=== PATIENT | female | born 1990 ===

== ENCOUNTER 2016-08-04 14:17 | Emergency (ER) | payer OTHER ==
[2016-08-04 14:42] VITALS: BP 106/66; PULSE 80; RESP 20; TEMP 97; O2SAT 98
[2016-08-04] MEDS ORDERED: Sodium Chloride 0.9% 1,000 ML IV STA (15:29)
--- NOTE | 2016-08-04 16:25 | US ---
PROCEDURE: HISTORY: r/o ectopic COMPARISON: TECHNIQUE: FINDINGS: Uterus measures 8.5 x 6.9 x 4.8 centimeters. There is an intrauterine sac measuring 2.4 cm corresponding to 7 weeks gestational age. There is a pole measuring 1.3 cm corresponding 7 weeks 4 days gestational age. heart motion is identified at 154 beats per minute. There is a yolk sac present. The ovaries are unremarkable. IMPRESSION: As above.
[2016-08-04 16:34] LABS: RBC URINE 3 /hpf (0-3); URINE BACTERIA MANY (<OCC); URINE BILIRUBIN NEGATIVE (NEGATIVE); URINE BLOOD NEGATIVE (NEGATIVE); URINE COLOR YELLOW (YELLOW); URINE GLUCOSE (UA) NEG (Normal); URINE KETONE NEGATIVE (NEGATIVE); URINE LEUKOCYTE ESTERASE SMALL Leu/uL (Negative); URINE PROTEIN 30 mg/dL (NEGATIVE); URINE UROBILINOGEN 0.2-1.0 mg/dL (0.2-1.0); WBC URINE 13 /hpf (0-5)
--- NOTE | 2016-08-04 16:48 | ED PDOC ---
HPI: General Adult Time Seen by Provider: 08/04/16 14:31 Chief Complaint (Nursing): Abdominal Pain Chief Complaint (Provider): abdominal pain History Per: Patient History/Exam Limitations: no limitations Additional Complaint(s): 26yo female G5 comes in with dizziness, weakness, suprapubic abdominal pain. States she's been vomiting. No vaginal bleeding or discharge. 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) - Surgical History Surgical History: No Surg Hx - Family History Family History: States: Unknown Family Hx - Living Arrangements Living Arrangements: With Family - Social History Drugs: Denies - Home Medications Home Medications: Ambulatory Orders Medication Instructions Recorded Ibuprofen [Motrin] 600 mg PO Q8 #30 tab 01/30/15 Oxycodone HCl/Acetaminophen 1 tab PO Q6 PRN #10 tab 01/30/15 [Percocet 325 mg-5 mg] Tramadol HCl [Ultram] 50 mg PO Q8 PRN #20 tab 02/21/15 Ibuprofen [Motrin] 600 mg PO Q6 #20 tab 07/31/15 Nitrofurantoin Macrocrystals 100 mg PO BID 5 Days 08/04/16 [Macrobid] - Allergies Allergies/Adverse Reactions: Allergies Allergy/AdvReac Type Severity Reaction Status Date / Time No Known Allergies Allergy Verified 08/04/16 14:38 Review of Systems ROS Statement: Except As Marked, All Systems Reviewed And Found Negative Constitutional: Positive for: Weakness Gastrointestinal: Positive for: Nausea, Vomiting, Abdominal Pain Neurological: Positive for: Dizziness Physical Exam - Reviewed Nursing Documentation Reviewed: Yes Vital Signs Reviewed: Yes - Physical Exam Appears: Positive for: Well, Non-toxic, No Acute Distress Head Exam: Positive for: ATRAUMATIC, NORMAL INSPECTION, NORMOCEPHALIC Skin: Positive for: Warm, Dry Eye Exam: Positive for: EOMI, PERRL Cardiovascular/Chest: Positive for: Regular Rate, Rhythm Respiratory: Positive for: Normal Breath Sounds. Negative for: Rales, Rhonchi, Wheezing Gastrointestinal/Abdominal: Positive for: Normal Exam, Soft. Negative for: Tenderness Extremity: Positive for: Normal ROM Neurologic/Psych: Positive for: Alert, Oriented - Laboratory Results Result Diagrams: 08/04/16 16:40 08/04/16 16:40 - ECG O2 Sat by Pulse Oximetry: 98 (RA) Pulse Ox Interpretation: Normal Medical Decision Making Medical Decision Makin Impression abdominal pain in , nausea plan: -US OB -Labs -Zofran -IV Fluids -reassess 1730: Pt. feeling better. Tolerating PO. Will d/c home w/ f/u w/ [facility]. FINDINGS: Uterus measures 8.5 x 6.9 x 4.8 centimeters. There is an intrauterine sac measuring 2.4 cm corresponding to 7 weeks gestational age. There is a pole measuring 1.3 cm corresponding 7 weeks 4 days gestational age. heart motion is identified at 154 beats per minute. There is a yolk sac present. The ovaries are unremarkable. IMPRESSION: As above. Disposition - Clinical Impression Clinical Impression: Abdominal pain in , UTI (urinary tract infection) - Disposition [facility] Disposition Time: 17:45 Condition: IMPROVED Prescriptions: Nitrofurantoin Macrocrystals [Macrobid] 100 mg PO BID 5 Days Instructions: Abdominal Pain in (ED), Urinary Tract Infection in (ED) Additional Comments - Additional Comments Additional Comments: Scribe Attestation Documented by Best Desouza, acting as a scribe for Arturo Valladares MD. Provider Scribe Attestation All medical record entries made by the Scribe were at my direction and personally dictated by me. I have reviewed the chart and agree that the record accurately reflects my personal performance of the history, physical exam, medical decision making, and the department course for this patient. I have also personally directed, reviewed, and agree with the discharge instructions and disposition.
[2016-08-04 16:50] LABS: BASO % 0.3 % (0.0-2.0); EOS # 0.1 K/uL (0.0-0.7); HEMATOCRIT 34.7 % (34.0-47.0); LYMPH # 2.4 K/uL (1.0-4.3); LYMPH % 29.4 % (20.0-40.0); MEAN CELL VOLUME 81.3 fl (81.0-99.0); MEAN CORPUSCULAR HEMOGLOBIN 26.5 pg (27.0-31.0); MEAN CORPUSCULAR HGB CONC 32.6 g/dL (33.0-37.0); MEAN PLATELET VOLUME 7.2 fl (7.2-11.7); MONO # 0.8 K/uL (0.0-0.8); NEUT # 4.8 K/uL (1.8-7.0); NEUT % 59.3 % (50.0-75.0); RED CELL DISTRIBUTION WIDTH 15.3 % (11.5-14.5); WHITE BLOOD COUNT 8.1 K/uL (4.8-10.8)
[2016-08-04 17:04] LABS: ALB/GLOB RATIO 1.2 (1.0-2.1); ALKALINE PHOSPHATASE 69 U/L (38-126); ALT/SGPT 24 U/L (9-52); AST/SGOT 22 U/L (14-36); BILIRUBIN,TOTAL 0.6 mg/dl (0.2-1.3); BLOOD UREA NITROGEN 8 mg/dl (7-17); CALCIUM 8.9 mg/dL (8.4-10.2); CARBON DIOXIDE 22 mmol/L (22-30); CHLORIDE 105 mmol/L (98-107); GFR AFRICAN-AMERICAN > 60; GLUCOSE,RANDOM 87 mg/dL (65-105); LIPASE 47 U/L (23-300); POTASSIUM 3.5 MMOL/L (3.6-5.0); SODIUM 140 mmol/l (132-148); TOTAL PROTEIN 7.3 G/DL (6.3-8.2)
== END 2016-08-04 17:58 | disposition home or self-care (01) ==
LOC: H.ER 14:17
DX: O23.40 Unspecified infection of urinary tract in pregnancy, unspecified trimester (principal); R42 Dizziness and giddiness

== ENCOUNTER 2016-09-17 22:31 | Observation (INO) | payer OTHER ==
[2016-09-17 23:24] VITALS: TEMP 99.2; O2SAT 99
[2016-09-17] MEDS ORDERED: Sodium Chloride 0.9% 1,000 ML IV STA (23:52)
[2016-09-17] MEDS ORDERED: Iohexol 240 (50 ml) PO ONE (23:52)
[2016-09-17] MEDS ORDERED: Iohexol 240 (50 ml) ONE (23:53)
--- NOTE | 2016-09-17 23:56 | ED PDOC ---
HPI: Abdomen Time Seen by Provider: 09/17/16 23:40 Chief Complaint (Nursing): Abdominal Pain Chief Complaint (Provider): abdominal pain History Per: Patient History/Exam Limitations: no limitations Onset/Duration Of Symptoms: Hrs (7) Current Symptoms Are (Timing): Still Present Location Of Pain/Discomfort: Diffuse Quality Of Discomfort: "Pain" Associated Symptoms: Fever, Chills, Nausea, Vomiting Additional Complaint(s): 26 y/o female presents for eval of abdominal pain x 7 hours. Associated multiple nonbilious vomiting episodes, fever of 100.3, chills. Patient states she had pizza shortly before symptoms began; unknown if related. Denies cough, congestion, changes in bowel movements, sick contacts. 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) - Surgical History Surgical History: No Surg Hx - Family History Family History: States: Unknown Family Hx - Home Medications Home Medications: Ambulatory Orders Medication Instructions Recorded Naproxen [Naprosyn] 500 mg PO Q12 PRN #14 tablet 09/18/16 Ondansetron [Zofran Odt] 4 mg PO Q8 PRN #10 odt 09/18/16 - Allergies Allergies/Adverse Reactions: Allergies Allergy/AdvReac Type Severity Reaction Status Date / Time No Known Allergies Allergy Verified 09/17/16 23:20 Review of Systems ROS Statement: Except As Marked, All Systems Reviewed And Found Negative Constitutional: Positive for: Fever, Chills Gastrointestinal: Positive for: Nausea, Vomiting, Abdominal Pain Physical Exam - Reviewed Nursing Documentation Reviewed: Yes Vital Signs Reviewed: Yes - Physical Exam Appears: Positive for: Well, Non-toxic, No Acute Distress Head Exam: Positive for: ATRAUMATIC, NORMAL INSPECTION, NORMOCEPHALIC Skin: Positive for: Normal Color Eye Exam: Positive for: Normal appearance ENT: Positive for: Normal ENT Inspection Cardiovascular/Chest: Positive for: Regular Rate, Rhythm Respiratory: Positive for: Normal Breath Sounds Gastrointestinal/Abdominal: Positive for: Bowel Sounds, Soft, Tenderness (rlq, suprapubic, llq) Back: Positive for: Normal Inspection Extremity: Positive for: Normal ROM Neurologic/Psych: Positive for: Alert, Oriented - Laboratory Results Result Diagrams: 09/17/16 00:33 09/17/16 00:33 - ECG O2 Sat by Pulse Oximetry: 99 - Progress ED Course And Treament: labs, urine, IV fluids, IV zofran, IV toradol, CT abd/pelvis ED OBSERVATION Discharge: Yes Date of observation admission: 09/18/16 Time of observation admission: 01:30 - Observation admission statement Patient is being placed in observation because:: abdominal pain, vomiting - Goals of Observation Goals of observation are:: obtain CT abd/pelvis - Progress Note Progress Note: 09/18/16 02:45 EXAM: CT Abdomen and Pelvis With Intravenous Contrast CLINICAL HISTORY: 26 years old, female; Pain; Abdominal pain; Localized; Lower; Additional info: Abd pain, vomiting TECHNIQUE: Axial computed tomography images of the abdomen and pelvis with intravenous contrast. This CT exam was performed using one or more of the following dose reduction techniques : automated exposure control, adjustment of the mA and/or kV according to patient size, and/ or use of iterative reconstruction technique. Coronal and sagittal reformatted images were created and reviewed. CONTRAST: 95 mL of [id number] administered intravenously. EXAM DATE/TIME: Exam ordered 09/17/2016 11:52 PM COMPARISON: No relevant prior studies available. FINDINGS: History--Noted that on August 04, 2016, this patient had a pelvic ultrasound images not available for review, this study described an intrauterine gestational sac which at that time was 7 weeks gestational age and heart motion seen at that time. Ovaries within normal limits at time of that ultrasound as per that report. Lower thorax: Lung bases with mild gravitational phenomenon, no evidence of acute infection. Air in the esophagus in keeping with reflux. Small hiatus hernia. ABDOMEN: Liver: Hepatic steatosis, 19.7cm. Gallbladder and bile ducts: Unremarkable. No calcified stones. No ductal dilation. Pancreas: Unremarkable. No mass. No ductal dilation. Spleen: Unremarkable. No splenomegaly. Adrenals: Unremarkable. No mass. Kidneys and ureters: No ureteral stones are seen noting that punctate stones or noncalcified stones may not be well seen on CT. There is mild right hydronephrosis. Stomach and bowel: Unremarkable. No obstruction. No mucosal thickening. Appendix: No findings to suggest acute appendicitis. PELVIS: Bladder: Unremarkable. No mass. Reproductive: Interval history regarding the is not provided and correlation with beta hCG is strongly recommended. The left ovary contains a 4.3 cm cystic finding, right ovary is unremarkable. ABDOMEN and PELVIS: Intraperitoneal space: There is no free intraperitoneal air. No significant fluid collection. Bones/joints: No fractures. Likely disc bulge L4-5 and L5-S1. No dislocation. Soft tissues: Unremarkable. Vasculature: Unremarkable. No abdominal aortic aneurysm. Lymph nodes: Numerous small mesenteric nodes. IMPRESSION: Left adnexal cystic finding, greater than 4 cm, noting the history that the patient was on August 04, 2016. Correlation with beta hCG and consideration of gynecologic causes of symptoms is recommended. Specific considerations include retained products of conception, endometriosis. Normal appendix. Mild prominence of the right collecting system, no obstructing stone is seen, laboratory correlation. Thank you for allowing us to participate in the care of your patient. Patient states she had D&C procedure on 08/06/16 for a 7 week . SHe states she did not follow up because she did not have pelvic pain or bleeding after procedure. Patient notes getting her menses 2 days ago since procedure. Case discussed with ED attending Dr. Roger; will obtain u/s and add beta level. 09/18/16 05:35 EXAM: US Pelvis Complete, Transabdominal CLINICAL HISTORY: 26 years old, female; Signs and symptoms; Other: Vomiting, dizziness, pain; Prior surgery; Surgery date: 1-6 months; Surgery type: Termination of 08/06; Additional info: Pain, vomiting; L cyst, d c 08/06 TECHNIQUE: Real-time transabdominal pelvic ultrasound (complete) with image documentation. COMPARISON: CT - ABD PELVIS PO IV CON 09/18/2016 1:55:27 AM FINDINGS: Uterus/cervix: Uterus measures 10.4 x 4.1 x 6.3 cm in size. No myometrial mass. Endometrium: 1.1 cm in thickness. Small fluid within canal. Right ovary: 2.4 x 2.3 x 2.2 cm in size. No mass. Normal flow. Left ovary: 4.5 x 4.7 x 4.3 cm in size. 3.1 x 3.9 x 3.4cm septated hypoechoic lesion with internal echoes. Normal flow. Free fluid: No significant free fluid. Bladder: Unremarkable as visualized. IMPRESSION: 1. Probable hemorrhagic LEFT ovarian cyst. Recommend sonographic followup in 6 weeks to ensure resolution and exclude other etiologies. 2. Incidental/non-acute findings are described above Patient educated on findings, discharged with rx Naproxen, zofran. Advised follow up PMD 2-3 days. Follow up [facility]. Return to ED for worsening/concerning symptoms. Disposition - Clinical Impression Clinical Impression: Ovarian cyst, Abdominal pain - Patient ED Disposition Is Patient to be Admitted: No Counseled Patient/Family Regarding: Studies Performed, Diagnosis, Need For Followup, Rx Given - Disposition Disposition: Routine/Home Disposition Time: 05:35 Condition: IMPROVED
[2016-09-18 00:37] LABS: BASO % 0.1 % (0.0-2.0); EOS % 0.1 % (0.0-4.0); HEMATOCRIT 41.6 % (34.0-47.0); LYMPH # 0.9 K/uL (1.0-4.3); LYMPH % 10.7 % (20.0-40.0); MEAN CELL VOLUME 81.6 fl (81.0-99.0); MEAN CORPUSCULAR HEMOGLOBIN 26.8 pg (27.0-31.0); MEAN CORPUSCULAR HGB CONC 32.8 g/dL (33.0-37.0); MEAN PLATELET VOLUME 7.5 fl (7.2-11.7); MONO # 0.5 K/uL (0.0-0.8); MONO % 5.4 % (0.0-10.0); NEUT # 7.3 K/uL (1.8-7.0); NEUT % 83.7 % (50.0-75.0); WHITE BLOOD COUNT 8.7 K/uL (4.8-10.8)
[2016-09-18 00:51] LABS: ALB/GLOB RATIO 1.4 (1.0-2.1); ALKALINE PHOSPHATASE 62 U/L (38-126); ALT/SGPT 21 U/L (9-52); AST/SGOT 34 U/L (14-36); BILIRUBIN,TOTAL 0.8 mg/dl (0.2-1.3); BLOOD UREA NITROGEN 12 mg/dl (7-17); CALCIUM 9.2 mg/dL (8.4-10.2); CARBON DIOXIDE 22 mmol/L (22-30); CHLORIDE 104 mmol/L (98-107); GFR AFRICAN-AMERICAN > 60; GLUCOSE,RANDOM 115 mg/dL (65-105); LIPASE 67 U/L (23-300); SODIUM 139 mmol/l (132-148); TOTAL PROTEIN 8.4 G/DL (6.3-8.2)
[2016-09-18 01:00] LABS: POTASSIUM 4.7 MMOL/L (3.6-5.0)
[2016-09-18] MEDS ORDERED: Iohexol 300 100 ML IJ ONE (01:46)
[2016-09-18] MEDS ORDERED: Sodium Chloride 0.9% 50 ML IV ONE (01:47)
--- NOTE | 2016-09-18 02:26 | CT ---
EXAM: CT Abdomen and Pelvis With Intravenous Contrast CLINICAL HISTORY: 26 years old, female; Pain; Abdominal pain; Localized; Lower; Additional info: Abd pain, vomiting TECHNIQUE: Axial computed tomography images of the abdomen and pelvis with intravenous contrast. This CT exam was performed using one or more of the following dose reduction techniques: automated exposure control, adjustment of the mA and/or kV according to patient size, and/or use of iterative reconstruction technique. Coronal and sagittal reformatted images were created and reviewed. CONTRAST: 95 mL of administered intravenously. EXAM DATE/TIME: Exam ordered 09/17/2016 11:52 PM COMPARISON: No relevant prior studies available. FINDINGS: History--Noted that on August 04, 2016, this patient had a pelvic ultrasound images not available for review, this study described an intrauterine gestational sac which at that time was 7 weeks gestational age and heart motion seen at that time. Ovaries within normal limits at time of that ultrasound as per that report. Lower thorax: Lung bases with mild gravitational phenomenon, no evidence of acute infection. Air in the esophagus in keeping with reflux. Small hiatus hernia. ABDOMEN: Liver: Hepatic steatosis, 19.7cm. Gallbladder and bile ducts: Unremarkable. No calcified stones. No ductal dilation. Pancreas: Unremarkable. No mass. No ductal dilation. Spleen: Unremarkable. No splenomegaly. Adrenals: Unremarkable. No mass. Kidneys and ureters: No ureteral stones are seen noting that punctate stones or noncalcified stones may not be well seen on CT. There is mild right hydronephrosis. Stomach and bowel: Unremarkable. No obstruction. No mucosal thickening. Appendix: No findings to suggest acute appendicitis. PELVIS: Bladder: Unremarkable. No mass. Reproductive: Interval history regarding the is not provided and correlation with beta hCG is strongly recommended. The left ovary contains a 4.3 cm cystic finding, right ovary is unremarkable. ABDOMEN and PELVIS: Intraperitoneal space: There is no free intraperitoneal air. No significant fluid collection. Bones/joints: No fractures. Likely disc bulge L4-5 and L5-S1. No dislocation. Soft tissues: Unremarkable. Vasculature: Unremarkable. No abdominal aortic aneurysm. Lymph nodes: Numerous small mesenteric nodes. IMPRESSION: Left adnexal cystic finding, greater than 4 cm, noting the history that the patient was on August 04, 2016. Correlation with beta hCG and consideration of gynecologic causes of symptoms is recommended. Specific considerations include retained products of conception, endometriosis. Normal appendix. Mild prominence of the right collecting system, no obstructing stone is seen, laboratory correlation.
--- NOTE | 2016-09-18 05:34 | US ---
EXAM: US Pelvis Complete, Transabdominal CLINICAL HISTORY: 26 years old, female; Signs and symptoms; Other: Vomiting, dizziness, pain; Prior surgery; Surgery date: 1-6 months; Surgery type: Termination of 08/06; Additional info: Pain, vomiting; L cyst, d c 08/06 TECHNIQUE: Real-time transabdominal pelvic ultrasound (complete) with image documentation. COMPARISON: CT - ABD PELVIS PO IV CON 09/18/2016 1:55:27 AM FINDINGS: Uterus/cervix: Uterus measures 10.4 x 4.1 x 6.3 cm in size. No myometrial mass. Endometrium: 1.1 cm in thickness. Small fluid within canal. Right ovary: 2.4 x 2.3 x 2.2 cm in size. No mass. Normal flow. Left ovary: 4.5 x 4.7 x 4.3 cm in size. 3.1 x 3.9 x 3.4cm septated hypoechoic lesion with internal echoes. Normal flow. Free fluid: No significant free fluid. Bladder: Unremarkable as visualized. IMPRESSION: 1. Probable hemorrhagic LEFT ovarian cyst. Recommend sonographic followup in 6 weeks to ensure resolution and exclude other etiologies. 2. Incidental/non-acute findings are described above.
[2016-09-18 05:38] VITALS: BP 109/63; PULSE 95; RESP 18
[2016-09-18] MEDS ORDERED: Oxycodone/Acetaminophen 5/325 mg Tab PO ONE (05:40)
== END 2016-09-18 05:36 | disposition home or self-care (01) ==
LOC: H.ER 22:31 → H.EROBSV 09-18 01:30
PROVIDERS: ADMIT Emergency Medicine; ATTEND Emergency Medicine
DX: N83.202 Unspecified ovarian cyst, left side (principal); R10.32 Left lower quadrant pain

== ENCOUNTER 2017-06-12 12:21 | Emergency (ER) | payer MEDICAID, OTHER ==
[2017-06-12 12:52] VITALS: BP 119/64; PULSE 80; RESP 18; TEMP 97; O2SAT 100
--- NOTE | 2017-06-12 13:54 | ED PDOC ---
HPI: General Adult Time Seen by Provider: 06/12/17 13:09 Chief Complaint (Nursing): Abdominal Pain Chief Complaint (Provider): Left upper dental pain for a few days History Per: Patient History/Exam Limitations: no limitations Onset/Duration Of Symptoms: Days Have you had recent travel within the past 21 days to any of the following countries: [place], [place], [place] or [place]?: No Current Symptoms Are (Timing): Still Present Additional Complaint(s): Pt states she has been having left upper dental pain for 1 week and needs clearance to see a dentist. Pt found out she was a few days ago. PT states she is at 5 weeks gestation and 1 week ago when she wipes she saw pink blood. PT states it stopped in 1 day and she did not have any pain or cramping. PT denies current pain or cramping. Pt O (+) on previous visit. PT states she has to get back to work and does not want to stay for complete work- up for spotting last week. 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) - Surgical History Surgical History: No Surg Hx - Family History Family History: States: Unknown Family Hx - Home Medications Home Medications: Ambulatory Orders Medication Instructions Recorded Naproxen [Naprosyn] 500 mg PO Q12 PRN #14 tablet 09/18/16 Ondansetron [Zofran Odt] 4 mg PO Q8 PRN #10 odt 09/18/16 Amoxicillin 875 mg PO BID #20 tab 06/12/17 - Allergies Allergies/Adverse Reactions: Allergies Allergy/AdvReac Type Severity Reaction Status Date / Time No Known Allergies Allergy Verified 09/17/16 23:20 Review of Systems ROS Statement: Except As Marked, All Systems Reviewed And Found Negative Genitourinary Female: Positive for: Vaginal Bleeding (SPotting on week ago, none today). Negative for: Pelvic Pain Physical Exam - Reviewed Nursing Documentation Reviewed: Yes Vital Signs Reviewed: Yes - Physical Exam Appears: Positive for: Well, Non-toxic, No Acute Distress Head Exam: Positive for: ATRAUMATIC, NORMAL INSPECTION, NORMOCEPHALIC Skin: Positive for: Normal Color, Warm, DRY Eye Exam: Positive for: Normal appearance ENT: Positive for: Normal ENT Inspection Neck: Positive for: Normal, Painless ROM Cardiovascular/Chest: Positive for: Regular Rate, Rhythm Respiratory: Positive for: Normal Breath Sounds. Negative for: Accessory Muscle Use, Respiratory Distress Gastrointestinal/Abdominal: Positive for: Normal Exam, Bowel Sounds, Soft. Negative for: Tenderness Back: Positive for: Normal Inspection Extremity: Positive for: Normal ROM Neurologic/Psych: Positive for: Alert, Oriented - ECG O2 Sat by Pulse Oximetry: 100 Disposition - Clinical Impression Clinical Impression: Pain, dental - Patient ED Disposition Is Patient to be Admitted: No Counseled Patient/Family Regarding: Diagnosis - Disposition Disposition: Routine/Home Disposition Time: 13:50 Condition: GOOD Prescriptions: Amoxicillin 875 mg PO BID #20 tab Instructions: Toothache (ED) Forms: [facility] (Yoruba), [facility] School/Work Excuse
== END 2017-06-12 14:30 | disposition home or self-care (01) ==
LOC: H.ER 12:21
DX: K08.89 Other specified disorders of teeth and supporting structures (principal); O26.891 Other specified pregnancy related conditions, first trimester; Z3A.01 Less than 8 weeks gestation of pregnancy

== ENCOUNTER 2017-07-20 16:43 | Emergency (ER) | payer MEDICAID ==
[2017-07-20 16:55] VITALS: RESP 16
--- NOTE | 2017-07-20 17:17 | ED PDOC ---
HPI: General Adult Time Seen by Provider: 07/20/17 17:16 Chief Complaint (Nursing): Flu-like Symptoms Chief Complaint (Provider): fever, flu like symptoms History Per: Patient Additional Complaint(s): 27 year female currently 12 weeks presents with abdominal pain and generalized body aches that started yesterday. Patient reports subjective fever last night. She did not take anything for the fever. Patient denies any vaginal bleeding at this time. She is , no history of miscarriages or ectopic . Patient also reports associated nasal and sinus congestion and dry cough. OB: Dr. Thomson. Past Medical History Reviewed: Historical Data, Nursing Documentation, Vital Signs Vital Signs: Last Vital Signs Temp 98.7 F 07/20/17 16:54 Pulse 99 H 07/20/17 16:54 Resp 16 07/20/17 16:54 BP 105/70 07/20/17 16:54 Pulse Ox 100 07/20/17 18:41 - Medical History PMH: No Chronic Diseases - Surgical History Other surgeries: cyst removal from chest wall at 2 year old - Family History Family History: States: No Known Family Hx - Living Arrangements Living Arrangements: With Family - Social History Current smoker - smoking cessation education provided: No Alcohol: None Drugs: Denies - Home Medications Home Medications: Ambulatory Orders Medication Instructions Recorded Oseltamivir Phosphate [Tamiflu] 75 mg PO BID #9 capsule 07/20/17 Multivit/Folic Acid/I 1 tab PO DAILY 07/20/17 [] - Allergies Allergies/Adverse Reactions: Allergies Allergy/AdvReac Type Severity Reaction Status Date / Time No Known Allergies Allergy Verified 07/20/17 16:53 Review of Systems ROS Statement: Except As Marked, All Systems Reviewed And Found Negative Constitutional: Positive for: Fever (subjective). Negative for: Chills ENT: Positive for: Nose Congestion (and sinus) Cardiovascular: Negative for: Chest Pain Respiratory: Positive for: Cough (dry) Gastrointestinal: Positive for: Nausea, Abdominal Pain. Negative for: Vomiting , Diarrhea Genitourinary Female: Negative for: Dysuria, Frequency, Incontinence, Hematuria , Vaginal Discharge, Vaginal Bleeding Physical Exam - Reviewed Nursing Documentation Reviewed: Yes Vital Signs Reviewed: Yes - Physical Exam Appears: Positive for: Well, Non-toxic, No Acute Distress Skin: Negative for: Rash Eye Exam: Positive for: EOMI, Normal appearance, PERRL ENT: Positive for: Normal ENT Inspection, Nasal Congestion (and sinus congestion ). Negative for: Pharyngeal Erythema Neck: Positive for: Normal Cardiovascular/Chest: Positive for: Regular Rate, Rhythm Respiratory: Positive for: Normal Breath Sounds. Negative for: Wheezing, Respiratory Distress Gastrointestinal/Abdominal: Positive for: Soft, Other (gravid abdomen with mild diffuse tenderness) Back: Negative for: L CVA Tenderness, R CVA Tenderness Neurologic/Psych: Positive for: Alert, Oriented - Laboratory Results Result Diagrams: 07/20/17 17:34 07/20/17 17:34 Urine POC: Positive - ECG O2 Sat by Pulse Oximetry: 100 Pulse Ox Interpretation: Normal - Other Rad OB US X-Ray: Read By Radiologist X-Ray Interpretation: see below Medical Decision Making Medical Decision Makin-year-old female with flu-like symptoms and abdominal pain Plan: CBC CMP Beta Flu swab OB US PO tylenol IVF US: FINDINGS: Gestation: There is a single intrauterine gestation.Gestational sac has mean diameter of approximately 45 mm. [place] rump length measures approximately 36.9 mm. There is a heart rate of 173 beats per minute. A yolk sac is present, internal diameter measures approximately 4 mm. Uterus: Uterus measures approximately 13.6 x 7.5 x 10 cm. Cervix is closed. Ovaries: Neither ovary could be identified. Free fluid: There is no free fluid. IMPRESSION: 10 week 2 day single living intrauterine gestation, estimated date of delivery. Initial dose tamiflu given in ED along with rx for same. Advised tylenol prn for fever and body aches and benadryl prn congestion. OB follow up in 2-3 days. Disposition - Clinical Impression Clinical Impression: Influenza-like symptoms, Abdominal pain in - Patient ED Disposition Is Patient to be Admitted: No Counseled Patient/Family Regarding: Studies Performed, Diagnosis, Need For Followup, Rx Given - Disposition Referrals: Kiet Robertson MD [Family Provider] - Disposition: Routine/Home Disposition Time: 18:57 Condition: STABLE Additional Instructions: Take Tylenol every 4-6 hours for fever and bodyaches as needed. Benadryl as needed for congestion. Take prescription meds as directed. Drink plenty fluids and rest. Follow-up with OB in 2-3 days. Prescriptions: Oseltamivir Phosphate [Tamiflu] 75 mg PO BID #9 capsule Instructions: Flu, Adult (DC), Viral Upper Respiratory Infection, Adult (DC), Urinary Retention (DC) Forms: [email or web address] (Nepali), [facility] ED School/Work Excuse Results - Lab Results Lab Results: 07/20/17 07/20/17 07/20/17 17:41 17:34 17:34 WBC 9.0 RBC 4.19 Hgb 11.8 L Hct 34.5 MCV 82.3 MCH 28.2 MCHC 34.2 RDW 15.3 H Plt Count 285 MPV 7.3 Neut % (Auto) 75.9 H Lymph % (Auto) 14.5 L [place] % (Auto) 8.1 Eos % (Auto) 1.1 Baso % (Auto) 0.4 Neut # (Auto) 6.9 Lymph # (Auto) 1.3 [place] # (Auto) 0.7 Eos # (Auto) 0.1 Baso # (Auto) 0.0 Sodium 136 Potassium 3.7 Chloride 101 Carbon Dioxide 21 L Anion Gap 18 BUN 11 Creatinine 0.5 L Est GFR ( Amer) > 60 Est GFR (Non-Af Amer) > 60 Random Glucose 104 Calcium 9.2 Total Bilirubin 0.3 AST 19 ALT 25 Alkaline Phosphatase 47 Total Protein 7.1 Albumin 3.7 Globulin 3.4 Albumin/Globulin Ratio 1.1 Beta HCG, Quant 106000.00 Urine Color Yellow Urine Clarity Cloudy Urine pH 6.0 Ur Specific [place] 1.017 Urine Protein Negative Urine Glucose (UA) Neg Urine Ketones Negative Urine Blood Negative Urine Nitrate Negative Urine Bilirubin Negative Urine Urobilinogen 0.2-1.0 Ur Leukocyte Esterase Large Urine RBC (Auto) 3 Urine Microscopic WBC 3 Ur Squamous Epith Cells 30 H Urine Bacteria Rare Hyaline Casts 0-2
[2017-07-20] MEDS ORDERED: Sodium Chloride 0.9% 1,000 ML IV STA (17:25)
[2017-07-20 17:39] LABS: BASO % 0.4 % (0.0-2.0); EOS # 0.1 K/uL (0.0-0.7); EOS % 1.1 % (0.0-4.0); HEMOGLOBIN 11.8 g/dL (12.0-16.0); LYMPH # 1.3 K/uL (1.0-4.3); LYMPH % 14.5 % (20.0-40.0); MEAN CELL VOLUME 82.3 fl (81.0-99.0); MEAN CORPUSCULAR HEMOGLOBIN 28.2 pg (27.0-31.0); MEAN CORPUSCULAR HGB CONC 34.2 g/dL (33.0-37.0); MEAN PLATELET VOLUME 7.3 fl (7.2-11.7); MONO # 0.7 K/uL (0.0-0.8); MONO % 8.1 % (0.0-10.0); NEUT # 6.9 K/uL (1.8-7.0); NEUT % 75.9 % (50.0-75.0); RBC 4.19 Mil/uL (3.80-5.20); RED CELL DISTRIBUTION WIDTH 15.3 % (11.5-14.5)
[2017-07-20 17:56] LABS: ALB/GLOB RATIO 1.1 (1.0-2.1); ALBUMIN 3.7 g/dL (3.5-5.0); ALT/SGPT 25 U/L (9-52); AST/SGOT 19 U/L (14-36); BLOOD UREA NITROGEN 11 mg/dl (7-17); CALCIUM 9.2 mg/dL (8.4-10.2); GFR AFRICAN-AMERICAN > 60; GFR NON-AFRICAN AMERICAN > 60
[2017-07-20 18:09] LABS: SQUAMOUS EPITHIAL 30 /hpf (0-5); URINE BACTERIA RARE (<OCC); URINE BILIRUBIN NEGATIVE (NEGATIVE); URINE BLOOD NEGATIVE (NEGATIVE); URINE CLARITY CLOUDY (Clear); URINE COLOR YELLOW (YELLOW); URINE GLUCOSE (UA) NEG (Normal); URINE HYALINE CAST 0-2 /hpf (0-2); URINE LEUKOCYTE ESTERASE LARGE Leu/uL (Negative); URINE PROTEIN NEGATIVE (NEGATIVE); URINE UROBILINOGEN 0.2-1.0 mg/dL (0.2-1.0)
--- NOTE | 2017-07-20 18:48 | US ---
EXAM: US First Trimester, Transabdominal EXAM DATE/TIME: 07/20/2017 5:25 PM CLINICAL HISTORY: 27 years old, female; Pain; complicated by abdominal or pelvic pain; Periumbilical; First trimester; Gestational age or lmp: 05/04/17 ; Additional info: 12 weeks with abd pain TECHNIQUE: Real-time transabdominal obstetrical ultrasound of the maternal pelvis and a first trimester with image documentation. COMPARISON: There are no prior studies for comparison. FINDINGS: Gestation: There is a single intrauterine gestation.Gestational sac has mean diameter of approximately 45 mm. [place] rump length measures approximately 36.9 mm. There is a heart rate of 173 beats per minute. A yolk sac is present, internal diameter measures approximately 4 mm. Uterus: Uterus measures approximately 13.6 x 7.5 x 10 cm. Cervix is closed. Ovaries: Neither ovary could be identified. Free fluid: There is no free fluid. IMPRESSION: 10 week 2 day single living intrauterine gestation, estimated date of delivery 02/13/18
[2017-07-20 19:00] VITALS: BP 115/80; PULSE 81; TEMP 98.1
[2017-07-20 19:01] VITALS: O2SAT 100
== END 2017-07-20 19:10 | disposition home or self-care (01) ==
LOC: H.ER 16:43
DX: O26.91 Pregnancy related conditions, unspecified, first trimester (principal); Z3A.10 10 weeks gestation of pregnancy; J11.1 Influenza due to unidentified influenza virus with other respiratory manifestations; R10.9 Unspecified abdominal pain
CPT/HCPCS: 76815; 80053; 81003; 81025; 84702; 85025; 87086; 87804; 96360; 99283; J7040

== ENCOUNTER 2017-07-24 15:23 | Emergency (ER) | payer MEDICAID ==
[2017-07-24 15:28] VITALS: BP 108/67; PULSE 94; RESP 16; TEMP 98; O2SAT 100
[2017-07-24] MEDS ORDERED: Lidocaine 1% Inj (20ml) IJ ONE (16:57)
--- NOTE | 2017-07-24 17:48 | ED PDOC ---
HPI: Skin/Bite Injury Time Seen by Provider: 07/24/17 15:57 Chief Complaint (Nursing): Abnormal Skin Integrity Chief Complaint (Provider): Abscess History Per: Patient History/Exam Limitations: no limitations Onset/Duration Of Symptoms: Days Current Symptoms Are (Timing): Still Present Location Of Injury: Right: Leg (inner thigh) Additional Complaint(s): 27yo female, presents to ED for evaluation of a painful abscess with surrounding redness for the past week on her right inner thigh. Patient states she tried to "pop it" yesterday but was unsuccessful. Otherwise: (-) foreign body, (-) fever, (-) chills. (-) recent antibiotic use. 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) - Surgical History Surgical History: No Surg Hx - Family History Family History: States: Unknown Family Hx - Home Medications Home Medications: Ambulatory Orders Medication Instructions Recorded Oseltamivir Phosphate [Tamiflu] 75 mg PO BID #9 capsule 07/20/17 Multivit/Folic Acid/I 1 tab PO DAILY 07/20/17 [] Cephalexin [Keflex] 500 mg PO Q6 #28 capsule 07/24/17 - Allergies Allergies/Adverse Reactions: Allergies Allergy/AdvReac Type Severity Reaction Status Date / Time No Known Allergies Allergy Verified 07/24/17 15:25 Review of Systems ROS Statement: Except As Marked, All Systems Reviewed And Found Negative Constitutional: Negative for: Fever, Chills Skin: Positive for: Other (abscess right inner thigh) Physical Exam - Reviewed Nursing Documentation Reviewed: Yes Vital Signs Reviewed: Yes - Physical Exam Comments: GENERAL APPEARANCE: Patient is awake, alert, oriented x 3, in mild painful distress. SKIN: warm and dry, +3 cm erythematous, tender, slightly fluctuant abscess to the right medial proximal thigh with no surrounding cellulitis. PULMONARY: lungs clear, no rhonchi, no wheezing. CARDIAC: regular rate and rhythm, no murmur, no gallop. ABDOMEN: soft, nontender. EXTREMITIES: no deformity, full range of motion, no tenderness - ECG O2 Sat by Pulse Oximetry: 100 (RA) Pulse Ox Interpretation: Normal Medical Decision Making Medical Decision Making: Impression: Abscess Plan: -- Incision and drainage of abscess -- Lidocaine 1% I&D: Prior to procedure "time out" was called in order to confirm the correct patient and procedure. Through aseptic technique, local anesthesia was administered to abscess, incision and drainage of abscess (located in the proximal medial R thigh) was performed by ROGER which produced purulent material. Wound packing was inserted to the wound. Clean dressing was applied Advised to follow up with primary care physician after 2 days without fail for wound check and packing removal. Advised to take keflex as prescribed. Return to the emergency room at any time for any new or worsening symptoms. Patient states she fully agrees with and understands discharge instructions. States that she agrees with the plan and disposition. Verbalized and repeated discharge instructions and plan. I have given the patient opportunity to ask any additional questions. Scribe Attestation: Documented by Danita Greer acting as a scribe for Kathy Wayne PA-C. Provider Attestation: All medical record entries made by the Scribe were at my direction and personally dictated by me. I have reviewed the chart and agree that the record accurately reflects my personal performance of the history, physical exam, medical decision making, and the department course for this patient. I have also personally directed, reviewed, and agree with the discharge instructions and disposition. Disposition - Clinical Impression Clinical Impression: Abscess - Patient ED Disposition Is Patient to be Admitted: No Counseled Patient/Family Regarding: Diagnosis, Need For Followup, Rx Given - Disposition Disposition: Routine/Home Disposition Time: 17:30 Condition: STABLE Additional Instructions: Thank you for letting us take care of you today. You were treated for abscess. The emergency medical care you received today was directed at your acute symptoms. If you were prescribed any medication, please fill it and take as directed. It may take several days for your symptoms to resolve. Return to the Emergency Department if your symptoms worsen, do not improve, or if you have any other problems. Please contact your doctor in 2 days for re-evaluation, follow up and packing removal/ or call one of the physicians/clinics you have been referred to that are listed on the Patient Visit Information form that is included in your discharge packet. Bring any paperwork you were given at discharge with you along with any medications you are taking to your follow up visit. Our treatment cannot replace ongoing medical care by a primary care provider (PCP) outside of the emergency department. Thank you for allowing the [facility] team to be part of your care today. 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
== END 2017-07-24 17:44 | disposition home or self-care (01) ==
LOC: H.ER 15:23
DX: L02.415 Cutaneous abscess of right lower limb (principal); Z86.73 Personal history of transient ischemic attack (TIA), and cerebral infarction without residual deficits

== ENCOUNTER 2017-12-09 11:09 | Emergency (ER) | payer MEDICAID ==
[2017-12-09 11:40] VITALS: BMI 29.8
[2017-12-09 12:56] LABS: SQUAMOUS EPITHIAL 18 /hpf (0-5); URINE BACTERIA RARE (<OCC); URINE BILIRUBIN NEGATIVE (NEGATIVE); URINE BLOOD SMALL (NEGATIVE); URINE CLARITY CLOUDY (Clear); URINE COLOR YELLOW (YELLOW); URINE GLUCOSE (UA) NEG (Normal); URINE LEUKOCYTE ESTERASE SMALL Leu/uL (Negative); URINE PROTEIN NEGATIVE (NEGATIVE); URINE UROBILINOGEN 0.2-1.0 mg/dL (0.2-1.0)
[2017-12-09] MEDS ORDERED: Lactated Ringer's 1,000 ML IV SCH (14:00)
--- NOTE | 2017-12-09 14:34 | US ---
Date of service: 12/09/2017 PROCEDURE: Limited Ob ultrasound HISTORY: abdominal pain at 31 wks, h/o PTD COMPARISON: 07/20/2017 TECHNIQUE: Transvaginal pelvic ultrasound was performed. FINDINGS: The cervix is elongated and closed. The cervical length measures 5.1 cm IMPRESSION: Cervical length measures 5.1 cm.
--- NOTE | 2017-12-09 15:21 | OBHP ---
Datetime: 12/09/2017 12:50 IP Adm Impression: , intrauterine IP Admit Plan: Observation/Evaluation; Discharge home Admit Comment, IP Provider: 27 yo at 31+1 wks w/ EDC 02/09/2018, reports that she started to have abdominal pain since yesterday at 1030. Pt reports pain became worse at 4 pm, reports strong p ain last night. Pt also reports that she last felt baby moving at 0330. Pt reports that she now fee ls FM in [place]. Pt denies LOF, reports passing mucus, denies bleeding. Pt denies dysuria and reports slight nausea. Pt reports that she had labor and delivery at 33+ wks w/ her last baby and h er pain feels similar to when she was in labor. Pt receives her care w/ [facility] w/ Dr. Chu vila. PMHx: Healthy PSHx: cyst removed from back at 2 yo Meds: PNVs All: NKDA Soc hx: Pt denies tobacco, alcohol and illicit drug use Emergency Department Rn hx: 13 x reg, denies STDs and abn paps Obhx: 03/2009 FT VD , female, 6#12 01/2011 34 wks, VD, female, 6#5, IOL for low fluid 09/2013 33-34 VD, male, 6#0 PE: Gen'l: Pt appears uncomfortable Heart: RRR Chest: Lungs CTA b/l Abdomen: soft, NT, gravid Ext: no edema Spec: FFN done, sl. frothy white d/c, FFN collected VE: closed/ thick EFM: as above [place]: None A/p: 27 yo G [id number] at 31+1 wks w/ abdominal pain Ua w/ sq epi 18 H, small blood, LE small, rare bacteria Urine cx pending TV u/s revealed cx is 5.1 cm and closed Pt given IVF, reports that her pain went from a 7-8 to a 3 after receiving a liter of LR VE unchanged Pt discharged home w/ PTL precautions, to f/u w/ Dr. Robertson Extremities - PN: Normal Abdomen - PN: Normal Back - PN: Normal Heart - PN: Normal Neurologic - PN: Normal HEENT - PN: Normal General - PN: Normal FHR - Baseline A Provider: 130's Membranes, Provider: Intact Contraction Comments Provider: None EGA AdmitDate IP: 31.1 Vital Signs Provider: Reviewed IP Chief Complaint: Maternal discomfort NICHD Variability Prov Fetus A: Moderate 6-25bpm NICHD Accel Fetus A IP Provider: 15X15 FHR Category Provider Fetus A: Category I NICHD Decel Fetus A IP Provider: None Dilatation, Provider: 0 Effacement, Provider: 0 Station, Provider: -3
--- NOTE | 2017-12-09 15:23 | OBDCSUM ---
Datetime: 12/09/2017 15:20 Discharged to, Provider: Home Follow up at, Provider: Dr. Robertson Disch Instr Activity: Normal activity Disch Instr Diet: Regular Discharge Time: 12/09/2017 15:20 Follow up in weeks, Provider: 2 weeks Discharge Comment, Provider: Pt is going to call Dr. Joseph after she is discharged home Discharge Diagnosis Prov Other: Abdominal pain at 31+ wks
[2017-12-09 19:50] VITALS: BP 102/52; PULSE 99
== END 2017-12-09 15:15 | disposition home or self-care (01) ==
LOC: H.EROB2 11:09 → H.L&D 13:07 → H.EROB2 15:15
DX: O26.93 Pregnancy related conditions, unspecified, third trimester (principal); R10.2 Pelvic and perineal pain; Z3A.31 31 weeks gestation of pregnancy

== ENCOUNTER 2017-12-27 17:14 | Emergency (ER) | payer MEDICAID ==
[2017-12-27] MEDS ORDERED: Lactated Ringer's 1,000 ML IV SCH (18:45)
[2017-12-27 19:15] LABS: SQUAMOUS EPITHIAL 35 /hpf (0-5); URINE BACTERIA FEW (<OCC); URINE BILIRUBIN NEGATIVE (NEGATIVE); URINE BLOOD NEGATIVE (NEGATIVE); URINE CLARITY CLOUDY (Clear); URINE COLOR YELLOW (YELLOW); URINE GLUCOSE (UA) NEG (Normal); URINE LEUKOCYTE ESTERASE LARGE Leu/uL (Negative); URINE PROTEIN NEGATIVE (NEGATIVE); URINE UROBILINOGEN 0.2-1.0 mg/dL (0.2-1.0)
[2017-12-27 19:16] LABS: BASO % 0.2 % (0.0-2.0); EOS # 0.1 K/uL (0.0-0.7); EOS % 0.9 % (0.0-4.0); HEMOGLOBIN 11.5 g/dL (12.0-16.0); LYMPH # 2.3 K/uL (1.0-4.3); LYMPH % 31.3 % (20.0-40.0); MEAN CELL VOLUME 88.1 fl (81.0-99.0); MEAN CORPUSCULAR HEMOGLOBIN 30.2 pg (27.0-31.0); MEAN CORPUSCULAR HGB CONC 34.3 g/dL (33.0-37.0); MEAN PLATELET VOLUME 7.4 fl (7.2-11.7); MONO # 0.9 K/uL (0.0-0.8); MONO % 12.4 % (0.0-10.0); NEUT % 55.2 % (50.0-75.0); RBC 3.8 Mil/uL (3.80-5.20); RED CELL DISTRIBUTION WIDTH 14.7 % (11.5-14.5); WHITE BLOOD COUNT 7.3 K/uL (4.8-10.8)
[2017-12-27 19:17] LABS: ALBUMIN 3.3 g/dL (3.5-5.0); ALT/SGPT 19 U/L (9-52); AMYLASE 95 U/L (30-110); AST/SGOT 22 U/L (14-36); BLOOD UREA NITROGEN 5 mg/dl (7-17); CALCIUM 8.8 mg/dL (8.4-10.2); GFR AFRICAN-AMERICAN > 60; GFR NON-AFRICAN AMERICAN > 60; LIPASE 90 U/L (23-300)
[2017-12-27 21:22] VITALS: BP 106/65; RESP 19
--- NOTE | 2017-12-27 22:20 | OBHP ---
Datetime: 12/27/2017 17:56 IP Adm Impression: , intrauterine IP Chief Complaint Other: headache IP Admit Plan: Observation/Evaluation Admit Comment, IP Provider: Pt is a with pmh of delivery present to [facility] de to headache and contraction 1 every 20 mint that started at 9pm yesterday. Pt denies vaginal discharge, vaginal bleeding, or water gush. Pt report moderate movement, she report that she had an ultrasound on 12/23 and they told her its breech. Pt state that she felt hot in the morning and thats when she deci ded to come to [facility] for monitoring. Allergy none Med: vit PMH: none PSH: none PFH: mom htn, dad healthy OBHx: vaginal delivery first 37, 34, and 33, pt state that she was induced to decrease flu id in placenta. Pt denies any complication in current , except last U/S 12/23/17 the fetus w as breeched. Social: pt denies smoke, drink ETOH or drug use 18:23 Assessment Pt is lying comfortable in bed with no acute distress Pt state that her pain have decreased and she is not feeling contraction vitals wnl strip is reassuring Pelvic exam: cervic is closed Plan F/U CBC, CMP, Amylase, Lipase, UA Will give Tylenol 650 prn for headache Will give LR 1L Push monitor vitals monitor TOCO/ strip 19:39 reassisst BLood lab wnl UA: Mod wbc , leukocyte will treat for UTI with macrobic 100mg bid for 7 day Pt feel better and will be dicharged home return if any concern. Case discussed with Dr. Julien Resident YSkaden PGY1 Addendum: I saw examined patient up presentation. Patient observed at OB ED. No evidence of labor at this time. All labs within normal limits. heart tracing reactive. Urinalysis suggestive of uri nary tract infection. Patient given prescription for 7 day course of Macrobid. Patient discharged chucho e and will follow up with clinic as already scheduled. Anaya Pelvic Type - PN: Adequate Extremities - PN: Normal Abdomen - PN: Normal Back - PN: Not Done Breast - PN: Not Done Lungs - PN: Normal Heart - PN: Normal Thyroid - PN: Not Done Neurologic - PN: Not Done HEENT - PN: Normal General - PN: Normal Presentation-Admit: Breech FHR - Baseline A Provider: 140 Contraction Comments Provider: no contraction noted on toco Comments, ACOG Physical Exam: PT is lying comfortable in bed with no acute distress Cardio: s1 s2 heard no murmur or extrea heartsound Lung clear in all quadrant Abd: bs+, fundos above umbilicus extremites: no calf tenderness Pelvic exam: cervic is closed Gestation - Est Wks by US: 33.5 EGA AdmitDate IP: 33.5 Vital Signs Provider: Reviewed; Within Normal Limits IP Chief Complaint: Uterine contractions; Other NICHD Variability Prov Fetus A: Moderate 6-25bpm NICHD Accel Fetus A IP Provider: 15X15 FHR Category Provider Fetus A: Category I NICHD Decel Fetus A IP Provider: None Dilatation, Provider: 0 Effacement, Provider: 0 Genitourinary Exam: Not Done DTRs - PN: Not Done
[2017-12-28 00:29] VITALS: PULSE 85; TEMP 98; O2SAT 100
== END 2017-12-27 19:55 | disposition home or self-care (01) ==
LOC: H.EROB2 17:14
DX: O26.93 Pregnancy related conditions, unspecified, third trimester (principal); R51 Headache; R10.2 Pelvic and perineal pain; Z3A.33 33 weeks gestation of pregnancy
CPT/HCPCS: 80053; 81003; 82150; 83690; 85025; 99283; J7120

== ENCOUNTER 2018-02-07 13:12 | Inpatient (IN) | payer MEDICAID ==
[2018-02-07 13:56] VITALS: BMI 30.9
[2018-02-07] MEDS ORDERED: Lactated Ringer's 1,000 ML IV ONE (13:56)
[2018-02-07] MEDS ORDERED: Lactated Ringer's 1,000 ML IV SCH (14:00)
[2018-02-07] MEDS ORDERED: Fentanyl/Bupivacaine HCl 250 ML EPI ONE (14:15)
[2018-02-07] MEDS: Lactated Ringer's 1,000 ML IV SCH ×3 (15:31→21:30)
[2018-02-07 16:14] LABS: BASO % 0.2 % (0.0-2.0); EOS % 0.3 % (0.0-4.0); HEMOGLOBIN 12.5 g/dL (12.0-16.0); LYMPH # 1.8 K/uL (1.0-4.3); LYMPH % 16.9 % (20.0-40.0); MEAN CELL VOLUME 86.3 fl (81.0-99.0); MEAN CORPUSCULAR HEMOGLOBIN 29.2 pg (27.0-31.0); MEAN CORPUSCULAR HGB CONC 33.9 g/dL (33.0-37.0); MEAN PLATELET VOLUME 8.1 fl (7.2-11.7); MONO # 1.1 K/uL (0.0-0.8); MONO % 10.4 % (0.0-10.0); NEUT # 7.6 K/uL (1.8-7.0); NEUT % 72.2 % (50.0-75.0); NRBC % 0.2 % (0.0-0.0); RBC 4.27 Mil/uL (3.80-5.20); RED CELL DISTRIBUTION WIDTH 13.6 % (11.5-14.5); WHITE BLOOD COUNT 10.6 K/uL (4.8-10.8)
[2018-02-07] MEDS ORDERED: Oxytocin 30 UNIT 30 UNITS/500 ML BAG IV ONE ×2 (17:42→18:08)
[2018-02-07] MEDS ORDERED: OXYTOCIN/0.9 % NS 20 UNIT/1,000 ML BAG IV ONE (18:08)
[2018-02-07] MEDS ORDERED: Gentamicin 100mg/100ml NS 100 MG/100 ML BAG IVPB SCH (23:45)
[2018-02-07] MEDS ORDERED: AMPicillin 4 GM ONE (23:51)
--- NOTE | 2018-02-07 23:53 | OBPN ---
Datetime: 02/07/2018 23:50 IP Progress Impression Other: Elevated Maternal fever IP Progress Impression: Normal progression of labor IP Informed Consent Obtain: Vaginal Delivery IP Procedures: Sterile Vag Exam IP Progress Plan: Continue present management; Antibiotic therapy Membranes, Provider: Ruptured FHR - Baseline A Provider: 160s Gestation - Est Wks by US: 39.5 Presentation-Admit: Vertex IP Progress Note Comment: Active labor Elevated maternal temp to 100.4 Plan: Antibiotics Prepare for vaginal delivery. Vital Signs Provider Details: Temp- 100.4 NICHD Accel Fetus A IP Provider: 100 FHR Category Provider Fetus A: Category I NICHD Variability Prov Fetus A: Moderate 6-25bpm Dilatation, Provider: 10 Effacement, Provider: 100 Station, Provider: -1 Datetime: 02/07/2018 14:07 Contraction Comments Provider: Q4-5 Vital Signs Provider: Reviewed; Within Normal Limits NICHD Decel Fetus A IP Provider: None
--- NOTE | 2018-02-08 01:03 | OBDS ---
DELIVERY PERSONNEL Delivery Doctor: Rocio Mace MD Resident Associate: Frank Ortiz RN Anesthesiologist: Dyllan Dao MD MATERNAL INFORMATION Delivery Anesthesia: Epidural Provider Comments: Uncomplicated spontaneous vaginal delivery of a viable female with s cores of 9 and 9 and delivered in the MUSTAPHA position, delivered over an intact perineum. EBL- 200mls Patient tolerated the procedure well. LABOR SUMMARY EDC: 02/09/2018 00:00 No. Babies in Womb: 1 Attempted: No Labor Anesthesia: Epidural LABOR INFORMATION Reason for Induction: Not Applicable Onset of Labor: 02/07/2018 07:00 Oxytocin: Augmentation Group B Beta Strep: Negative Steroids Given: None Reason Steroids Not Administered: Not Applicable MEMBRANES Membranes Rupture Method: Artificial Rupture of Membranes: 02/07/2018 16:45 Amniotic Fluid Color: Clear Amniotic Fluid Amount: Scant BABY A INFORMATION Born in Route : No : N/A PRESENTATION/POSITION BABY A Presentation: Cephalic Cephalic Presentation: Vertex Breech Presentation: N/A INFORMATION BABY A Gestational Age at Delivery: 39.0 Gestational Status: Term
--- NOTE | 2018-02-08 01:08 | OBHP ---
Datetime: 02/07/2018 23:50 Presentation-Admit: Vertex FHR - Baseline A Provider: 160s Membranes, Provider: Ruptured Gestation - Est Wks by US: 39.5 Vital Signs Provider Details: Temp- 100.4 NICHD Variability Prov Fetus A: Moderate 6-25bpm NICHD Accel Fetus A IP Provider: 100 FHR Category Provider Fetus A: Category I Dilatation, Provider: 10 Effacement, Provider: 100 Station, Provider: -1 Datetime: 02/07/2018 14:07 IP Admit Plan: Admit to unit; Initiate labor protocol Pelvic Type - PN: Adequate Extremities - PN: Normal Abdomen - PN: Normal Back - PN: Normal Breast - PN: Not Done Lungs - PN: Normal Heart - PN: Normal Thyroid - PN: Normal Neurologic - PN: Normal HEENT - PN: Normal General - PN: Normal Contraction Comments Provider: Q4-5 IP Hx Assessment: The History has been Reviewed and is Current EGA AdmitDate IP: 39.5 Vital Signs Provider: Reviewed; Within Normal Limits IP Indication for Induction: Not Applicable NICHD Decel Fetus A IP Provider: None Genitourinary Exam: Normal DTRs - PN: Not Done Datetime: 02/07/2018 13:37 IP Adm Impression: Term, intrauterine ; Active labor Admit Comment, IP Provider: 27 y/o female at 39.5 wk GA c/o painful contractions that began at 7:30 this morning. She denies VFL, VB, n/v. She endorses movement. She states that she saw h er PNC on and he stipped her membrane at that time. PNC: Dr. Robertson Pmh: denies Obhx: NSVDx3, 1 miscarriage Famhx: mother has HTN Surghx: chest abscess removal Socialhx: denies tobacco, etoh, and recreational drug use HomeRx: vitamins Allergies: NKDA Gen: not in acute distress, but appears uncomfortable Heart: Normal RRR, S1/S2 present Lungs: clear to auscultation bilaterally Abd: Gravid, normal bowel sounds, soft, non-tender SVE: (chaperoned by Nurse Arielle) 4 cm, thick, high Extremities: no pedal edema, no calf tenderness Neuro: alert/oriented x3 Assessment and Plan: 27 y/o female at 39.5 wk GA intrauterine c/o painful contractions SVE: 4cm dilated Contractions Q4-5 mins Will admit to L_D GBS negative CBC/type and screen ordered Rapid HIV ordered 2L LR boluses 1L LR at 125mL/hr Can have epidural, anesthesiology consulted Luann Saldivar, PGY1 Attending Note: patient was seen with the resident and i agree with the assessment above. Comments, ACOG Physical Exam: SVE 4cm, thick, high IP Chief Complaint: Uterine contractions; Maternal discomfort
[2018-02-08] MEDS ORDERED: Oxycodone/Acetaminophen 5/325 mg Tab PO PRN (01:49)
[2018-02-08] MEDS ORDERED: AMPicillin 2 GM in Sodium Chloride 0.9% 100 ML IVPB SCH (04:00)
[2018-02-08 07:44] LABS: HEMOGLOBIN 11.9 g/dL (12.0-16.0); MEAN CELL VOLUME 86.4 fl (81.0-99.0); MEAN CORPUSCULAR HEMOGLOBIN 29.2 pg (27.0-31.0); MEAN CORPUSCULAR HGB CONC 33.8 g/dL (33.0-37.0); RBC 4.06 Mil/uL (3.80-5.20); RED CELL DISTRIBUTION WIDTH 13.6 % (11.5-14.5); WHITE BLOOD COUNT 18.4 K/uL (4.8-10.8)
[2018-02-08] MEDS ORDERED: Gentamicin 100mg/100ml NS 100 MG/100 ML BAG IVPB SCH (07:45)
--- NOTE | 2018-02-08 11:28 | OBADHP ---
Datetime: 02/07/2018 23:50 Presentation-Admit: Vertex FHR - Baseline A Provider: 160s Membranes, Provider: Ruptured Gestation - Est Wks by US: 39.5 Vital Signs Provider Details: Temp- 100.4 NICHD Variability Prov Fetus A: Moderate 6-25bpm NICHD Accel Fetus A IP Provider: 100 FHR Category Provider Fetus A: Category I Dilatation, Provider: 10 Effacement, Provider: 100 Station, Provider: -1 Datetime: 02/07/2018 14:07 Pelvic Type - PN: Adequate Extremities - PN: Normal Abdomen - PN: Normal Back - PN: Normal Breast - PN: Not Done Lungs - PN: Normal Heart - PN: Normal Thyroid - PN: Normal Neurologic - PN: Normal HEENT - PN: Normal General - PN: Normal Contraction Comments Provider: Q4-5 IP Hx Assessment: The History has been Reviewed and is Current Vital Signs Provider: Reviewed; Within Normal Limits NICHD Decel Fetus A IP Provider: None Genitourinary Exam: Normal DTRs - PN: Not Done EGA AdmitDate IP: 39.5 IP Admit Plan: Admit to unit; Initiate labor protocol Datetime: 02/07/2018 13:37 Admit Comment, IP Provider: 27 y/o female at 39.5 wk GA c/o painful contractions that began at 7:30 this morning. She denies VFL, VB, n/v. She endorses movement. She states that she saw h er PNC on and he stipped her membrane at that time. PNC: Dr. Robertson Pmh: denies Obhx: NSVDx3, 1 miscarriage Famhx: mother has HTN Surghx: chest abscess removal Socialhx: denies tobacco, etoh, and recreational drug use HomeRx: vitamins Allergies: NKDA Gen: not in acute distress, but appears uncomfortable Heart: Normal RRR, S1/S2 present Lungs: clear to auscultation bilaterally Abd: Gravid, normal bowel sounds, soft, non-tender SVE: (chaperoned by Nurse Arielle) 4 cm, thick, high Extremities: no pedal edema, no calf tenderness Neuro: alert/oriented x3 Assessment and Plan: 27 y/o female at 39.5 wk GA intrauterine c/o painful contractions SVE: 4cm dilated Contractions Q4-5 mins Will admit to L_D GBS negative CBC/type and screen ordered Rapid HIV ordered 2L LR boluses 1L LR at 125mL/hr Can have epidural, anesthesiology consulted Luann Saldivar, PGY1 Attending Note: patient was seen with the resident and i agree with the assessment above. Comments, ACOG Physical Exam: SVE 4cm, thick, high IP Chief Complaint: Uterine contractions; Maternal discomfort IP Adm Impression: Term, intrauterine ; Active labor Datetime: 12/27/2017 17:56 IP Chief Complaint Other: headache
--- NOTE | 2018-02-08 11:30 | OBPPN ---
Datetime: 02/08/2018 11:27 PP Pain Prov: Within normal limits PP Nausea Prov: Denies PP Flatus Prov: Yes PP Breasts Prov: Normal PP Heart Prov: Normal PP Lungs Prov: Normal PP Abdomen/Uterus Prov: Normal PP Lochia Prov: Normal PP Vulva/Perineum Prov: Normal PP CVA Tenderness Prov: Normal PP Extremities Prov: Normal PP Comments Phys Exam Prov: Abd; Soft,NT, BS- present UT- Firm PP Impression Prov: Normal progression PP Progress Note Prov: S/P , Clinically Stable Plan: Continue care. Vital Signs Provider PP: Reviewed
[2018-02-08] MEDS: AMPicillin 2 GM in Sodium Chloride 0.9% 100 ML IVPB SCH ×3 (12:30→23:38)
[2018-02-08] MEDS: Gentamicin 100mg/100ml NS 100 MG/100 ML BAG IVPB SCH (16:45)
[2018-02-08] MEDS ORDERED: Influenza Vaccine (5 YR UP)/PF 60 MCG/0.5 ML SYR IM ONE (16:45)
[2018-02-08] MEDS: Oxycodone/Acetaminophen 5/325 mg Tab PO PRN (20:19)
[2018-02-09] MEDS: Gentamicin 100mg/100ml NS 100 MG/100 ML BAG IVPB SCH (01:37)
[2018-02-09] MEDS: Oxycodone/Acetaminophen 5/325 mg Tab PO PRN (06:46)
--- NOTE | 2018-02-09 10:20 | OBPPN ---
Datetime: 02/09/2018 10:10 PP Pain Prov: Within normal limits PP Nausea Prov: Denies PP Flatus Prov: Yes PP Breasts Prov: Normal PP Heart Prov: Normal PP Lungs Prov: Normal PP Abdomen/Uterus Prov: Normal PP Lochia Prov: Normal PP Vulva/Perineum Prov: Normal PP CVA Tenderness Prov: Normal PP Extremities Prov: Normal PP Comments Phys Exam Prov: Fundus firm under umbilicus PP Impression Prov: Normal progression PP Plan Prov: Continue present management PP Progress Note Prov: Patient denies CP, no SOB, no N/V, tolerating PO diet, ambulating/voiding wel l, mild lochia A/P PPD #1 1. continue current managmenet for care 2. Encourage ambulation/ IP PP Procedures: None Vital Signs Provider PP: Reviewed; Within Normal Limits
--- NOTE | 2018-02-10 10:09 | OBPPN ---
Datetime: 02/10/2018 10:06 PP Pain Prov: Within normal limits PP Nausea Prov: Denies PP Flatus Prov: Yes PP BM Prov: Yes PP Breasts Prov: Normal PP Heart Prov: Normal PP Lungs Prov: Normal PP Abdomen/Uterus Prov: Normal PP Lochia Prov: Normal PP Vulva/Perineum Prov: Normal PP CVA Tenderness Prov: Normal PP Extremities Prov: Normal PP Progress Prov: Normal PP Impression Prov: Normal progression PP Plan Prov: Continue present management; Discharge PP Progress Note Prov: She feels fine ready to go home A: S/P day 2 PLAN : dischsagre home and follow up in 6w Vital Signs Provider PP: Reviewed; Within Normal Limits
[2018-02-10 19:10] VITALS: BP 99/67; PULSE 68; RESP 20; TEMP 98.3; O2SAT 91
== END 2018-02-10 14:15 | disposition home or self-care (01) | DRG 372 ==
LOC: H.EROB2 13:12 → H.L&D 13:43 → H.EROB2 13:55 → H.L&D 13:56 → H.OB/GYN 02-08 03:20
PROVIDERS: ADMIT Obstetrics & Gynecology; ATTEND Obstetrics & Gynecology
PROC: 10E0XZZ Delivery of Products of Conception, External Approach (ICD-10-PCS; principal; 2018-02-07)
PROC: 10907ZC Drainage of Amniotic Fluid, Therapeutic from Products of Conception, Via Natural or Artificial Opening (ICD-10-PCS; 2018-02-07)
PROC: 4A1HXCZ Monitoring of Products of Conception, Cardiac Rate, External Approach (ICD-10-PCS; 2018-02-07)
PROC: 3E02340 Introduction of Influenza Vaccine into Muscle, Percutaneous Approach (ICD-10-PCS; 2018-02-08)
DX: O75.2 Pyrexia during labor, not elsewhere classified (principal); Z37.0 Single live birth; Z3A.39 39 weeks gestation of pregnancy; Z23 Encounter for immunization